=== PATIENT | female | born 1940 | race Caucasian/White ===

== ENCOUNTER → 2019-05-25 | Emergency (ER) | payer OTHER ==
[~2019-05-25] VITALS: Ht 152.4 cm; Wt 79.4 kg
[~2019-05-25] MED LIST: ABILIFY2 MG; AZOR 10-20 MG1 EACH; BUPROPION HCL200 M1; DEPAKOTE SPRIN125 MG; EFFEXOR XR150 MG; PROTONIX40 MG; TOPROL XL25 M1; VENLAFAXINE HCL75 M2
== END | disposition home or self-care (01) ==
LOC: ER 14:04
DX: J44.9 Chronic obstructive pulmonary disease, unspecified (principal); K29.70 Gastritis, unspecified, without bleeding